=== PATIENT | female | born 1980 | race Caucasian/White ===

== ENCOUNTER 2016-08-27 14:05 | Emergency (ER) | payer OTHER ==
[2016-08-27] MEDS ORDERED: ONDANSETRON 4 MG/2 ML VIAL IVP STA ×2 (15:19→17:03)
[2016-08-27] MEDS ORDERED: SODIUM CHLORIDE 0.9% 1,000 ML IV STA (15:19)
[2016-08-27] MEDS ORDERED: MORPHINE SULFATE 4 MG/ML SYRINGE IV STA ×2 (15:20→17:02)
[2016-08-27 15:56] LABS: Basophils % (A) 0 %; CH 30.5; CHCM 33.9; Eosinophils # (A) 0.1 k/uL (0-0.7); Eosinophils % (A) 1 %; HCT 44.7 % (34.0-46.0); HDW 2.13; Luc # (Auto) 0.05; Luc % (Auto) 1; Lymphocytes # (A) 0.3 k/uL (1.0-4.8); Lymphocytes % (A) 3 %; MCH 30.3 pg (25.0-35.0); MCHC 33.5 g/dL (31.0-37.0); MCV 90.5 fL (80.0-100.0); Monocytes # (A) 0.3 k/uL (0-1.0); Monocytes % (A) 3 %; Neutrophils # (A) 9.2 k/uL (1.3-7.7); Neutrophils % (A) 92 %; RBC 4.94 m/uL (3.80-5.40); RDW 12.5 % (11.5-15.5); WBC (Perox) 10.07
[2016-08-27 16:02] LABS: Appearance,Urine Cloudy (Clear); Bilirubin,Urine Negative (Negative); Glucose,Urine (UA) Negative (Negative); Ketones,Urine 2+ (Negative); Leukocyte Esterase,Urine Negative (Negative); Mucus,Urine Few /hpf; Nitrite,Urine Negative (Negative); PH, Urine 6.5 (5.0-8.0); Particle Count 9515; Protein,Urine 1+ (Negative); RBC,Urine 10 /hpf (0-5); Squamous Epithelial Cell,Urine 8 /hpf (0-4); UA Billing (MACRO vs. MICRO) MICRO; Urobilinogen,Urine <2.0 mg/dL (<2.0)
[2016-08-27 16:07] LABS: ALT 23 U/L (9-52); AST 16 U/L (14-36); Alkaline Phosphatase 77 U/L (38-126); Anion Gap 13 mmol/L; Blood Urea Nitrogen 16 mg/dL (7-17); Calcium 9.1 mg/dL (8.4-10.2); Carbon Dioxide 24 mmol/L (22-30); Chloride 103 mmol/L (98-107); Glucose 112 mg/dL (74-99); Non-African American GFR(MDRD) >60 (>60 ml/min/1.73 sqM); Potassium 3.8 mmol/L (3.5-5.1); Sodium 140 mmol/L (137-145); Total Bilirubin 0.9 mg/dL (0.2-1.3); Total Protein 7.4 g/dL (6.3-8.2)
--- NOTE | 2016-08-27 16:42 | CT ---
EXAMINATION TYPE: CT abdomen pelvis w con DATE OF EXAM: 08/27/2016 4:34 PM REFERENCE: NONE HISTORY: pain HISTORY: abdominal pain, vomiting, diarrhea REFERENCE: NONE CT DLP: 1029.5 mGy Automated exposure control for dose reduction was used. TECHNIQUE: Helical acquisition through the abdomen and pelvis was obtained following the oral ingesti on of without Oral Contrast and following intravenous administration of 100 mL of Omnipaque 300. The data was reformatted in axial, coronal and sagittal projections. FINDINGS: There is breathing motion artifact on the lung imaging. There is atelectatic change presen t in the right middle lobe. There is no pleural or pericardial fluid. The heart is not enlarged. Within the abdomen, the liver is prominent measuring 18 cm. The gallbladder is been removed. The sple en is normal. Both adrenal glands are normal. Both kidneys demonstrate function and appear morphologically normal. The pancreas is unremarkable. There is no significant retroperitoneal, iliac or inguinal adenopathy. The bladder is not distended. The uterus is unremarkable. There has been a previous tubal ligation bilaterally. There is follicular change in the left ovary. There is a 1.5 cm cyst in the right ovary. There is no significant diverticular change and there is no radiographic evidence of diverticulitis. The appendix is normal. Small bowel loops appear normal. No free fluid and no free air is seen. No osseous lesion is seen. IMPRESSION: 1. HEPATOMEGALY. 2. 1.5 CM RIGHT OVARIAN CYST. 3. NO ACUTE INFLAMMATORY ABNORMALITY.
--- NOTE | 2016-08-27 16:46 | XR ---
EXAMINATION TYPE: XR chest 2V DATE OF EXAM ORDERED: 08/27/2016 4:43 PM HISTORY: pain. Reference: None. FINDINGS: The lungs are clear. Pleural spaces are clear. Heart size is normal. IMPRESSION: NORMAL CHEST.
[2016-08-27 17:16] VITALS: BP 126/69; PULSE 69; RESP 18; TEMP 97.2
--- NOTE | 2016-08-27 17:17 | ED ---
Nausea/Vomiting/Diarrhea HPI - General Chief complaint: Nausea/Vomiting/Diarrhea Stated complaint: Vomiting Time Seen by Provider: 08/27/16 15:08 Source: patient Mode of arrival: ambulatory Limitations: no limitations - History of Present Illness Initial comments: Patient complains of nausea, vomiting, diarrhea. Her symptoms have been present for couple days. She has some epigastric discomfort as well. She has no chest pain or shortness of breath. She has no lightheadedness or dizziness. She has no back pain. Nothing makes her symptoms better or worse. She was not doing anything when she began to feel this way. She is unaware of any sick contacts. She has taken no medication for her symptoms. She has no pain or swelling the legs. She has no palpitations. - Related Data Home Medications Medication Instructions Recorded Confirmed Albuterol Inhaler [Ventolin Hfa 2 puff INHALATION RT-Q6H PRN 08/27/16 08/27/16 Inhaler] Esomeprazole Magnesium [NexIUM 22.3 mg PO DAILY 08/27/16 08/27/16 24Hr] Ibuprofen [Motrin] 400 mg PO Q6HR PRN 08/27/16 08/27/16 Allergies Allergy/AdvReac Type Severity Reaction Status Date / Time egg AdvReac Nausea Verified 08/27/16 15:42 shellfish derived [Shellfish] AdvReac Nausea Verified 08/27/16 15:42 Review of Systems ROS Statement: Those systems with pertinent positive or pertinent negative responses have been documented in the HPI. ROS Other: All systems not noted in ROS Statement are negative. Past Medical History Past Medical History: Asthma, GERD/Reflux, Hypertension, Thyroid Disorder Additional Past Medical History / Comment(s): childhood asthma, cyst on thyroid, History of Any Multi-Drug Resistant Organisms: None Reported Past Surgical History: Section, Cholecystectomy Additional Past Surgical History / Comment(s): c-sect x2, left thyroid removed due to cyst Past Psychological History: No Psychological Hx Reported Smoking Status: Former smoker Past Alcohol Use History: Rare Past Drug Use History: None Reported General Exam Limitations: no limitations General appearance: alert, in no apparent distress Head exam: Present: atraumatic, normocephalic, normal inspection Eye exam: Present: normal appearance, PERRL, EOMI. Absent: scleral icterus, conjunctival injection, periorbital swelling ENT exam: Present: normal exam, mucous membranes moist Neck exam: Present: normal inspection. Absent: tenderness, meningismus, lymphadenopathy Respiratory exam: Present: normal lung sounds bilaterally. Absent: respiratory distress, wheezes, rales, rhonchi, stridor Cardiovascular Exam: Present: regular rate, normal rhythm, normal heart sounds. Absent: systolic murmur, diastolic murmur, rubs, gallop, clicks GI/Abdominal exam: Present: soft, normal bowel sounds. Absent: distended, tenderness, guarding, rebound, rigid Extremities exam: Present: normal inspection, full ROM, normal capillary refill. Absent: tenderness, pedal edema, joint swelling, calf tenderness Back exam: Present: normal inspection Neurological exam: Present: alert, oriented X3, CN II-XII intact Psychiatric exam: Present: normal affect, normal mood Skin exam: Present: warm, dry, intact, normal color. Absent: rash Course Vital Signs 08/27/16 14:17 Temperature 97.0 F L Pulse Rate 72 Respiratory 16 Rate Blood Pressure 133/60 O2 Sat by Pulse 100 Oximetry Medical Decision Making - Medical Decision Making Patient complains of abdominal pain, vomiting and diarrhea. She states the pain is severe. Therefore I P[place]ick CAT scan which is negative per radiology. Otherwise, her laboratory workup is unremarkable. Patient is feeling much better after IV fluids, pain medication and Zofran. I feel that she is stable for discharge. - Lab Data Result diagrams: 08/27/16 15:30 08/27/16 15:30 Lab Results 08/27/16 08/27/16 08/27/16 Range/Units 15:30 15:30 15:30 WBC 10.0 (3.8-10.6) k/uL RBC 4.94 (3.80-5.40) m/uL Hgb 15.0 (11.4-16.0) gm/dL Hct 44.7 (34.0-46.0) % MCV 90.5 (80.0-100.0) fL MCH 30.3 (25.0-35.0) pg MCHC 33.5 (31.0-37.0) g/dL RDW 12.5 (11.5-15.5) % Plt Count 275 (150-450) k/uL Neutrophils % 92 % Lymphocytes % 3 % Monocytes % 3 % Eosinophils % 1 % Basophils % 0 % Neutrophils # 9.2 H (1.3-7.7) k/uL Lymphocytes # 0.3 L (1.0-4.8) k/uL Monocytes # 0.3 (0-1.0) k/uL Eosinophils # 0.1 (0-0.7) k/uL Basophils # 0.0 (0-0.2) k/uL Sodium 140 (137-145) mmol/L Potassium 3.8 (3.5-5.1) mmol/L Chloride 103 (98-107) mmol/L Carbon Dioxide 24 (22-30) mmol/L Anion Gap 13 mmol/L BUN 16 (7-17) mg/dL Creatinine 0.76 (0.52-1.04) mg/dL Est GFR (MDRD) Af Amer >60 (>60 ml/min/1.73 sqM) Est GFR (MDRD) Non-Af >60 (>60 ml/min/1.73 sqM) Glucose 112 H (74-99) mg/dL Calcium 9.1 (8.4-10.2) mg/dL Total Bilirubin 0.9 (0.2-1.3) mg/dL AST 16 (14-36) U/L ALT 23 (9-52) U/L Alkaline Phosphatase 77 (38-126) U/L Troponin I <0.012 (0.000-0.034) ng/mL Total Protein 7.4 (6.3-8.2) g/dL Albumin 4.4 (3.5-5.0) g/dL Lipase 35 (23-300) U/L Urine Color Urine Appearance (Clear) Urine pH (5.0-8.0) Ur Specific [place] (1.001-1.035) Urine Protein (Negative) Urine Glucose (UA) (Negative) Urine Ketones (Negative) Urine Blood (Negative) Urine Nitrate (Negative) Urine Bilirubin (Negative) Urine Urobilinogen (<2.0) mg/dL Ur Leukocyte Esterase (Negative) Urine RBC (0-5) /hpf Ur Squamous Epith Cells (0-4) /hpf Urine Mucus (None) /hpf Urine HCG, Qual (Not Detectd) 08/27/16 08/27/16 Range/Units 15:30 15:30 WBC (3.8-10.6) k/uL RBC (3.80-5.40) m/uL Hgb (11.4-16.0) gm/dL Hct (34.0-46.0) % MCV (80.0-100.0) fL MCH (25.0-35.0) pg MCHC (31.0-37.0) g/dL RDW (11.5-15.5) % Plt Count (150-450) k/uL Neutrophils % % Lymphocytes % % Monocytes % % Eosinophils % % Basophils % % Neutrophils # (1.3-7.7) k/uL Lymphocytes # (1.0-4.8) k/uL Monocytes # (0-1.0) k/uL Eosinophils # (0-0.7) k/uL Basophils # (0-0.2) k/uL Sodium (137-145) mmol/L Potassium (3.5-5.1) mmol/L Chloride (98-107) mmol/L Carbon Dioxide (22-30) mmol/L Anion Gap mmol/L BUN (7-17) mg/dL Creatinine (0.52-1.04) mg/dL Est GFR (MDRD) Af Amer (>60 ml/min/1.73 sqM) Est GFR (MDRD) Non-Af (>60 ml/min/1.73 sqM) Glucose (74-99) mg/dL Calcium (8.4-10.2) mg/dL Total Bilirubin (0.2-1.3) mg/dL AST (14-36) U/L ALT (9-52) U/L Alkaline Phosphatase (38-126) U/L Troponin I (0.000-0.034) ng/mL Total Protein (6.3-8.2) g/dL Albumin (3.5-5.0) g/dL Lipase (23-300) U/L Urine Color Yellow Urine Appearance Cloudy H (Clear) Urine pH 6.5 (5.0-8.0) Ur Specific [place] 1.030 (1.001-1.035) Urine Protein 1+ H (Negative) Urine Glucose (UA) Negative (Negative) Urine Ketones 2+ H (Negative) Urine Blood Negative (Negative) Urine Nitrate Negative (Negative) Urine Bilirubin Negative (Negative) Urine Urobilinogen <2.0 (<2.0) mg/dL Ur Leukocyte Esterase Negative (Negative) Urine RBC 10 H (0-5) /hpf Ur Squamous Epith Cells 8 H (0-4) /hpf Urine Mucus Few H (None) /hpf Urine HCG, Qual Not Detected (Not Detectd) 08/27/16 17:15 Twelve-lead EKG obtained, interpreted by me as showing ventricular rate 74 bpm, normal CT interval and QRS complex is, no ST elevation or depression, interpreted by me as normal sinus rhythm. Disposition Clinical Impression: Gastroenteritis Disposition: HOME SELF-CARE Condition: Good Instructions: Gastroenteritis (ED) Time of Disposition: 17:17
== END 2016-08-27 17:30 | disposition home or self-care (01) ==
LOC: EC 14:05
DX: K52.9 Noninfective gastroenteritis and colitis, unspecified (principal); J45.909 Unspecified asthma, uncomplicated; K21.9 Gastro-esophageal reflux disease without esophagitis; Z87.891 Personal history of nicotine dependence; Z79.899 Other long term (current) drug therapy; Z91.012 Allergy to eggs; Z91.013 Allergy to seafood; Z90.49 Acquired absence of other specified parts of digestive tract
CPT/HCPCS: 36415; 93005; 80053; 83690; 84484; 85025; 81001; 81025; 71020; 74177; 99284; 96374; 96375; 96376 ×2; 96361; J2270; J2405; Q9967

== ENCOUNTER 2018-02-05 11:54 | Emergency (ER) | payer OTHER ==
[2018-02-05 11:58] VITALS: BP 146/85; PULSE 69; RESP 20; TEMP 97.5
[2018-02-05] MEDS ORDERED: KETOROLAC 30 MG/ML 1 ML VIAL IM STA (12:08)
--- NOTE | 2018-02-05 12:26 | ED ---
ENT HPI - General Chief complaint: Dental/Oral Stated complaint: facial swelling Time Seen by Provider: 02/05/18 12:07 Source: patient, RN notes reviewed Mode of arrival: ambulatory Limitations: no limitations - History of Present Illness Initial comments: This is a 37-year-old female with past medical history of hypertension for which she states is controlled who presents today for chief complaint of tooth pain 3 days. Patient states that she has had poor dentition and multiple tooth extractions for as long she can remember, her tooth #28 has been cracked for 3 years, now she states there is really no tooth left however she's had pain at the site for 3 days, that is identical to when she's had dental abscesses in the past. The pain is mostly in tooth #28 with mild radiation toward the angle right right mandible. Patient attempted to call her dentist at the time of onset, however was unable to get an appointment for extraction until Wednesday. Pt states that she has been taking over the counter ibuprofen or tylenol for pain mgmt as needed. Patient then presented emergency department today when she could no longer take the pain while at work today, and because she noticed some mild swelling of the right face, and she was concerned for infection. Pt denies fever, chills, difficulty breathing, difficulty swallowing , trismus, lesions or masses below tongue, rashes, dizziness, headache, ear pain , confusion, palpable area of fluctulance, shortness of breath, chest pain, back pain, abdominal pain, nausea or vomiting, numbness or tingling, dysuria or hematuria, constipation or diarrhea, or visual changes, or any other complaints. Denies recent antibiotic use or drug allergies. - Related Data Home Medications Medication Instructions Recorded Confirmed Magnesium 400 mg PO DAILY 02/05/18 02/05/18 Omeprazole 40 mg PO DAILY 02/05/18 02/05/18 Triamterene-Hctz 37.5-25Mg 1 tab PO DAILY 02/05/18 02/05/18 [Maxzide 37.5-25] Previous Rx's Medication Instructions Recorded Penicillin V Potassium [Pen Vee K] 500 mg PO QID 7 Days #28 tablet 02/05/18 Allergies Allergy/AdvReac Type Severity Reaction Status Date / Time egg AdvReac Nausea Verified 02/05/18 11:58 shellfish derived [Shellfish] AdvReac Nausea Verified 02/05/18 11:58 Review of Systems ROS Statement: Those systems with pertinent positive or pertinent negative responses have been documented in the HPI. ROS Other: All systems not noted in ROS Statement are negative. Constitutional: Denies: fever, chills, weakness Eyes: Denies: eye pain ENT: Reports: dental pain. Denies: ear pain, throat pain Respiratory: Denies: cough, dyspnea, stridor Cardiovascular: Denies: chest pain, palpitations Gastrointestinal: Denies: abdominal pain, nausea, vomiting, diarrhea, constipation Genitourinary: Denies: urgency, dysuria, frequency Musculoskeletal: Denies: back pain, joint swelling, arthralgia Skin: Denies: rash Neurological: Denies: headache, weakness, numbness, paresthesias, confusion Past Medical History Past Medical History: Asthma, GERD/Reflux, Hypertension, Thyroid Disorder Additional Past Medical History / Comment(s): childhood asthma, cyst on thyroid, History of Any Multi-Drug Resistant Organisms: None Reported Past Surgical History: Section, Cholecystectomy Additional Past Surgical History / Comment(s): c-sect x2, left thyroid removed due to cyst Past Psychological History: No Psychological Hx Reported Smoking Status: Former smoker Past Alcohol Use History: Rare Past Drug Use History: None Reported General Exam - General Exam Comments Initial Comments: General: The patient is awake and alert, in no distress, and does not appear acutely ill. Eye: Pupils are equal, round and reactive to light, extra-ocular movements are intact. No nystagmus. There is normal conjunctiva bilaterally. No signs of icterus. Ears, nose, mouth and throat: There are moist mucous membranes and no oral lesions. Mild right sided facial swelling, no swelling below the angle of the mandible. Pt has overall poor dentition with no teeth #39-32 or #17-20. There is pulp exposure of tooth #28 with pain to percussion. There is no fluctuant abscess present in the adjacent gingiva. Tooth #9 is also cracked in half with some tenderness to percussion, no fluctulant abscess palpable in the adjacent gingiva. There are no lesions or masses of beneath the tongue. No trismus. Neck: The neck is supple, there is no tenderness or JVD. No palpable anterior cervical lymphadenopathy. Cardiovascular: There is a regular rate and rhythm. No murmur, rub or gallop is appreciated. Respiratory: Lungs are clear to auscultation, respirations are non-labored, breath sounds are equal. No wheezes, stridor, rales, or rhonchi. Musculoskeletal: Normal ROM grossly. Pulses equal bilaterally 2+. Neurological: A&O x 3. CN II-XII intact, There are no obvious motor or sensory deficits. Coordination appears grossly intact. Speech is normal. Skin: Skin is warm and dry and no rashes or lesions are noted. Psychiatric: Cooperative, appropriate mood & affect, normal judgment. Limitations: no limitations Course Vital Signs 02/05/18 11:56 Temperature 97.5 F L Pulse Rate 69 Respiratory 20 Rate Blood Pressure 146/85 O2 Sat by Pulse 99 Oximetry Medical Decision Making - Medical Decision Making This is a 37-year-old female with past medical history of previous dental abscesses who presents today for right-sided dental pain 3 days right-sided facial swelling concerning for dental abscess, acute pulpitis or periapical abscess. Upon physical examination pt had poor overall dentition with multiple dental caries, tooth #28 had exposed pulp and there was no evidence of areas of fluctuance of the adjacent mucosa or gingiva. Pt has pain to percussion over tooth #28 and mild right sided facial swelling, with no swelling below the angle of the mandible or masses under the tongue, and no trimus I have low suspicion for Ludwigs angina at this time. Pt was afebrile with no complaints of fever/chills-low suspicion for systemic infection. There is no apparent dental abscess but with pain to percussion of tooth im concerned for acute pulpitis or periapical abscess. Case was discussed in detail with Dr. Santana. Pt stated that she was taking ibuprofen and tylenol at home for pain that helped minimally, I ordered a 1x toradol IM inj 30mg for pain mgmt. Pt was discharged with RX for Pen VK 500mg QID, told to continue ibuprofen and tylenol as needed for pain management, and to keep appointment with her dentist for extraction on Wednesday. Pt discharged is stable condition. Disposition Clinical Impression: Pain, dental, Acute pulpitis Disposition: HOME SELF-CARE Condition: Good Instructions: Dental Abscess (ED) Additional Instructions: Please use over the counter pain medication as discussed. Please follow-up with your dentist as scheduled and discussed. Please return to emergency room if the symptoms increase or worsen or for any other concerns. Prescriptions: Penicillin V Potassium [Pen Vee K] 500 mg PO QID 7 Days #28 tablet Is patient prescribed a controlled substance at d/c from ED?: No Referrals: Andrea Cuenca MD [Primary Care Provider] - 1-2 days Gorge Morgan DDS [STAFF PHYSICIAN] - 1-2 days Time of Disposition: 12:27
== END 2018-02-05 12:36 | disposition home or self-care (01) ==
LOC: EC 11:54
DX: K04.01 Reversible pulpitis (principal); K02.9 Dental caries, unspecified; K03.81 Cracked tooth; R22.0 Localized swelling, mass and lump, head; I10 Essential (primary) hypertension; K21.9 Gastro-esophageal reflux disease without esophagitis; Z87.891 Personal history of nicotine dependence; Z79.899 Other long term (current) drug therapy; Z91.012 Allergy to eggs; Z91.013 Allergy to seafood
CPT/HCPCS: 99283; 96372; J1885